=== PATIENT | male | born 1960 | race Caucasian/White ===

== ENCOUNTER 2017-05-28 21:11 | Emergency (ER) | payer BC ==
[2017-05-28 21:44] VITALS: BP 147/83
[2017-05-28] MEDS ORDERED: Bacitracin Oint 1 GM U/D Packet TOP ONE (21:53)
[2017-05-28] MEDS ORDERED: Diphtheria,Pertussis(Acell),Tetanus Vaccine 0.5 ML SDV IM ONE (21:54)
--- NOTE | 2017-05-28 21:59 | EDM.PDOC ---
ED HPI GENERAL MEDICAL PROBLEM - General Chief Complaint: Laceration Stated Complaint: FISHHOOK Time Seen by Provider: 05/28/17 21:55 Source of Information: Reports: Patient History Limitations: Reports: No Limitations - History of Present Illness INITIAL COMMENTS - FREE TEXT/NARRATIVE: pt has a fishook in the web between the thumb and the index finger on the rt. Onset: Today Duration: Hour(s): Location: Reports: Upper Extremity, Right Associated Symptoms: Reports: No Other Symptoms Left Hand Pain Score (Numeric/FACES): 3 - Related Data Allergies Allergy/AdvReac Type Severity Reaction Status Date / Time Penicillins Allergy Cannot Verified 05/28/17 21:51 Remember Home Meds: Home Meds Aspirin 81 mg PO DAILY 05/28/17 [History] atorvaSTATin [Lipitor] 10 mg PO DAILY 05/28/17 [History] ED ROS GENERAL - Review of Systems Review Of Systems: See Below Constitutional: Reports: No Symptoms HEENT: Reports: No Symptoms Respiratory: Reports: No Symptoms Cardiovascular: Reports: No Symptoms Endocrine: Reports: No Symptoms GI/Abdominal: Reports: No Symptoms : Reports: No Symptoms ED EXAM, SKIN/RASH Exam: See Below Text/Narrative:: fishook in the rt hand Exam Limited By: No Limitations General Appearance: Alert Extremities: Other (pt has a fish hook in the web between the thumb and the index finger. ) Neurological: Alert, Oriented, Normal Cognition Course - Vital Signs Last Recorded V/S: Last Vital Signs Temp 35.7 C 05/28/17 21:48 Pulse 69 05/28/17 21:48 Resp 18 05/28/17 21:48 BP 147/83 H 05/28/17 21:48 Pulse Ox 99 05/28/17 21:48 - Orders/Labs/Meds Orders: Active Orders 24 hr Category Date Time Status Vaccines to be Administered [RC] PER UNIT ROUTINE Care 05/28/17 21:54 Ordered Diphth,Pertuss(Acell),Tet Vac [Adacel] Med 05/28/17 21:54 Once 0.5 ml IM .ONCE ONE Medication Orders Diphtheria/Tetanus/Acell Pertussis (Adacel) 0.5 ml IM .ONCE ONE Stop: 05/28/17 21:55 Meds: Medications Generic Name Dose Route Start Last Admin Trade Name Freq PRN Reason Stop Dose Admin Diphtheria/Tetanus/Acell Pertussis 0.5 ml 05/28/17 21:54 Adacel IM 05/28/17 21:55 .ONCE ONE Discontinued Medications Generic Name Dose Route Start Last Admin Trade Name Perez PRN Reason Stop Dose Admin Bacitracin 1 dose 05/28/17 21:53 Bacitracin Oint 1 Gm TOP 05/28/17 21:54 ONETIME ONE Lidocaine HCl 5 ml 05/28/17 21:43 Xylocaine-Mpf 1% INJECT 05/28/17 21:44 ONETIME ONE - Re-Assessments/Exams Free Text/Narrative Re-Assessment/Exam: 05/28/17 21:57 the area was cleansed and infiltrated with lidocaine the hook was pushed through without difficulty/ He is not current with his tetanus. He will be boostered with a tdap. Departure - Departure Time of Disposition: 21:58 Disposition: Home, Self-Care 01 Condition: Fair Clinical Impression: [place] injury to finger - Discharge Information Forms: ED Department Discharge Care Plan Goals: soak if tender. - My Orders Last 24 Hours: My Active Orders 05/28/17 21:54 Vaccines to be Administered [RC] PER UNIT ROUTINE Diphth,Pertuss(Acell),Tet Vac [Adacel] 0.5 ml IM .ONCE ONE - Assessment/Plan Last 24 Hours: My Active Orders 05/28/17 21:54 Vaccines to be Administered [RC] PER UNIT ROUTINE Diphth,Pertuss(Acell),Tet Vac [Adacel] 0.5 ml IM .ONCE ONE
== END 2017-05-28 22:11 | disposition home or self-care (01) ==
LOC: JP.ED 21:11
DX: S60.551A Superficial foreign body of right hand, initial encounter (principal); Z23 Encounter for immunization; Z88.0 Allergy status to penicillin; W45.8XXA Other foreign body or object entering through skin, initial encounter; Z79.82 Long term (current) use of aspirin
CPT/HCPCS: 90471; 90715; 99283-25